=== PATIENT | female | born 1960 | race African-American/Black ===

== ENCOUNTER 2019-04-20 19:45 | Inpatient (IN) | payer SELFPAY ==
[~2019-04-20] VITALS: Ht 162.6 cm; Wt 68.1 kg
[2019-04-20] MEDS ORDERED: SODIUM CHLORIDE 0.9% 1000ML BAG (SEPSIS BOLUS) IV ONE (20:00)
[2019-04-20 20:52] LABS: HEMATOCRIT. 43.1 % (36.0-48.0); HEMOGLOBIN. 13.8 g/dL (12.0-16.0); MEAN CORPUSCULAR HEMOGLOBIN 29.3 pg (28.0-32.0); MEAN CORPUSCULAR VOLUME 91.8 fL (81.0-99.0); MEAN PLATELET VOLUME 11.3 fl (7.4-10.4); PLATELET 207 x1000/uL (130-400); RED BLOOD CELL COUNT 4.69 mill/uL (4.2-5.4); RED CELL DISTRIBUTION WIDTH 17.3 % (11.6-14.6)
[2019-04-20 20:59] LABS: CHLORIDE 134 mEq/L (98-107); INR 1.1
[2019-04-20 21:04] LABS: ETHANOL BLOOD < 10 mg/dL
[2019-04-20] MEDS ORDERED: SODIUM CHLORIDE 0.45% 1,000 ML IV ONE (21:30)
[2019-04-20 21:43] LABS: PLATELET ESTIMATE NORMAL
[2019-04-20] MEDS ORDERED: VANCOMYCIN 1 G PREMIX 200 ML IV SCH (22:15)
[2019-04-20] MEDS ORDERED: PIPERACILLIN/TAZ 3.375G PREMIX 50 ML IV ONE (22:15)
[2019-04-20 22:45] LABS: CLARITY URINE CLOUDY (CLEAR); COLOR URINE YELLOW (YELLOW); KETONES URINE 1+ (NEGATIVE); LEUKOCYTE ESTERASE URINE TRACE (NEGATIVE); NITRITE URINE NEGATIVE (NEGATIVE); OCCULT BLOOD URINE NEGATIVE (NEGATIVE); PROTEIN URINE 1+ (NEGATIVE); SPECIFIC GRAVITY URINE 1.014 (1.005-1.030)
[2019-04-20 23:12] LABS: *BENZODIAZEPINES SCREEN URINE NEGATIVE (NEGATIVE)
[2019-04-20 23:13] LABS: *BARBITURATES SCREEN URINE NEGATIVE (NEGATIVE); *COCAINE SCREEN URINE NEGATIVE (NEGATIVE); CANNABINOID URINE SCREEN NEGATIVE (NEGATIVE); METHADONE URINE SCREEN NEGATIVE (NEGATIVE); OPIATES URINE SCREEN NEGATIVE (NEGATIVE); PHENCYCLIDINE URINE SCREEN NEGATIVE (NEGATIVE)
[2019-04-20 23:14] LABS: *AMPHETAMINES SCREEN URINE NEGATIVE (NEGATIVE)
[2019-04-21] VITALS (55 sets, daily range): BP systolic 83–142; BP diastolic 34–97
[2019-04-21] MEDS ORDERED: ZOSYN XX SCH (06:15)
[2019-04-21] MEDS ORDERED: ACETAMINOPHEN 325MG TABLET PO PRN (06:15)
[2019-04-21] MEDS ORDERED: DEXTROSE 50% WATER 50ML SYRINGE IV PRN (06:15)
[2019-04-21] MEDS ORDERED: GUAIFENESIN-DM 200MG-20MG/10ML UDC PO PRN (06:30)
[2019-04-21 06:32] LABS: BASOPHILS % 0.3 % (0.0-2.0); EOSINOPHILS % 0.1 % (0.0-5.0); HEMATOCRIT. 37.4 % (36.0-48.0); HEMOGLOBIN. 12.1 g/dL (12.0-16.0); LYMPHOCYTES % 12.2 % (20.0-50.0); MEAN CORPUSCULAR HEMOGLOBIN 28.8 pg (28.0-32.0); MEAN PLATELET VOLUME 10.6 fl (7.4-10.4); MONOCYTES % 5.7 % (2.0-8.0); NEUTROPHILS % 81.7 % (40.0-76.0); PLATELET 180 x1000/uL (130-400); RED BLOOD CELL COUNT 4.21 mill/uL (4.2-5.4); RED CELL DISTRIBUTION WIDTH 16.8 % (11.6-14.6)
[2019-04-21] MEDS: DEXTROSE 5% WATER 1,000 ML IV SCH ×2 (06:49→20:50)
[2019-04-21 07:19] LABS: CHLORIDE 129 mEq/L (98-107)
[2019-04-21] MEDS: INSULIN LISPRO 100 UNITS/ML SUBCUT SCH ×4 (08:20→21:00)
[2019-04-21] MEDS: BLOOD SUGAR DIAGNOSTIC STRIP TEST SCH ×4 (08:49→21:15)
[2019-04-21] MEDS ORDERED: HEPARIN 5000 UNITS/ML VIAL SUBCUT SCH (09:00)
[2019-04-21] MEDS: PIPERACILLIN/TAZOBACTAM 3.375 G in DEXT 5% WATER 100 ML IV SCH ×3 (10:17→20:56)
[2019-04-21 11:32] LABS: CREATINE KINASE 66 IU/L (26-192)
[2019-04-21] MEDS ORDERED: POTASSIUM CHLORIDE INJ 40 MEQ in DEXT 5% WATER 250 ML IV SCH (12:00)
[2019-04-21] MEDS: VANCOMYCIN 1 G PREMIX 200 ML IV SCH (17:06)
[2019-04-21] MEDS ORDERED: POTASSIUM CHLORIDE 20MEQ TABLET SR PO NR (18:00)
[2019-04-21] MEDS: HEPARIN 5000 UNITS/ML VIAL SUBCUT SCH (23:00)
[2019-04-22] VITALS (29 sets, daily range): BP systolic 76–145; BP diastolic 35–88
[2019-04-22] MEDS: PIPERACILLIN/TAZOBACTAM 3.375 G in DEXT 5% WATER 100 ML IV SCH ×4 (02:40→23:16)
[2019-04-22] MEDS: INSULIN LISPRO 100 UNITS/ML SUBCUT SCH ×5 (08:20→20:44)
[2019-04-22] MEDS: BLOOD SUGAR DIAGNOSTIC STRIP TEST SCH ×4 (08:46→20:44)
[2019-04-22 08:50] LABS: CHLORIDE 119 mEq/L (98-107)
[2019-04-22 08:56] LABS: PHOSPHORUS 1.7 mg/dL (2.5-4.9)
[2019-04-22] MEDS: HEPARIN 5000 UNITS/ML VIAL SUBCUT SCH ×3 (09:02→20:59)
[2019-04-22] MEDS: DEXTROSE 5% WATER 1,000 ML IV SCH ×3 (09:03→20:59)
[2019-04-22 09:22] LABS: BASOPHILS % 0.4 % (0.0-2.0); HEMATOCRIT. 37.6 % (36.0-48.0); HEMOGLOBIN. 12.4 g/dL (12.0-16.0); LYMPHOCYTES % 24.9 % (20.0-50.0); MEAN CORPUSCULAR HEMOGLOBIN 29.7 pg (28.0-32.0); MEAN CORPUSCULAR VOLUME 90.2 fL (81.0-99.0); MEAN PLATELET VOLUME 11.3 fl (7.4-10.4); MONOCYTES % 5.3 % (2.0-8.0); NEUTROPHILS % 68.4 % (40.0-76.0); PLATELET 110 x1000/uL (130-400); RED BLOOD CELL COUNT 4.17 mill/uL (4.2-5.4); RED CELL DISTRIBUTION WIDTH 16.9 % (11.6-14.6)
[2019-04-22] MEDS: VANCOMYCIN 1 G PREMIX 200 ML IV SCH (10:43)
[2019-04-23] VITALS: BP 109/66
[2019-04-23] MEDS ORDERED: VANCOMYCIN 1 G PREMIX 200 ML IV SCH (03:00)
[2019-04-23 04:00] VITALS: BP 120/84
[2019-04-23] MEDS: PIPERACILLIN/TAZOBACTAM 3.375 G in DEXT 5% WATER 100 ML IV SCH ×4 (04:15→21:23)
[2019-04-23] MEDS: HEPARIN 5000 UNITS/ML VIAL SUBCUT SCH ×3 (05:44→21:23)
[2019-04-23] MEDS: BLOOD SUGAR DIAGNOSTIC STRIP TEST SCH ×4 (06:51→20:50)
[2019-04-23 07:11] LABS: BASOPHILS % 0.2 % (0.0-2.0); EOSINOPHILS % 1.8 % (0.0-5.0); HEMATOCRIT. 35.2 % (36.0-48.0); HEMOGLOBIN. 11.6 g/dL (12.0-16.0); LYMPHOCYTES % 15.4 % (20.0-50.0); MEAN CORPUSCULAR HEMOGLOBIN 29.1 pg (28.0-32.0); MEAN CORPUSCULAR VOLUME 88.3 fL (81.0-99.0); MONOCYTES % 8.7 % (2.0-8.0); NEUTROPHILS % 73.9 % (40.0-76.0); PLATELET 109 x1000/uL (130-400); RED BLOOD CELL COUNT 3.99 mill/uL (4.2-5.4); RED CELL DISTRIBUTION WIDTH 16.1 % (11.6-14.6)
[2019-04-23] MEDS: INSULIN LISPRO 100 UNITS/ML SUBCUT SCH ×4 (07:47→20:50)
[2019-04-23 07:53] LABS: CHLORIDE 114 mEq/L (98-107)
[2019-04-23 08:00] VITALS: BP 104/63
[2019-04-23] MEDS ORDERED: POTASSIUM CHLORIDE 20MEQ TABLET SR PO SCH (09:15)
[2019-04-23 12:00] VITALS: BP 111/65
[2019-04-23 16:00] VITALS: BP 104/61
[2019-04-23] MEDS: VANCOMYCIN 750 MG PREMIX 150 ML IV SCH (18:57)
[2019-04-23 20:00] VITALS: BP 102/64
[2019-04-24] VITALS: BP 90/50
[2019-04-24] MEDS: PIPERACILLIN/TAZOBACTAM 3.375 G in DEXT 5% WATER 100 ML IV SCH (03:44)
[2019-04-24 04:00] VITALS: BP 95/47
[2019-04-24] MEDS: HEPARIN 5000 UNITS/ML VIAL SUBCUT SCH (05:51)
[2019-04-24] MEDS: VANCOMYCIN 750 MG PREMIX 150 ML IV SCH (05:51)
[2019-04-24] MEDS: BLOOD SUGAR DIAGNOSTIC STRIP TEST SCH ×4 (06:35→20:32)
[2019-04-24 07:21] LABS: CHLORIDE 116 mEq/L (98-107)
[2019-04-24 07:45] LABS: BASOPHILS % 0.5 % (0.0-2.0); EOSINOPHILS % 3.1 % (0.0-5.0); HEMATOCRIT. 29.5 % (36.0-48.0); LYMPHOCYTES % 21.4 % (20.0-50.0); MEAN CORPUSCULAR HEMOGLOBIN 29.8 pg (28.0-32.0); MEAN CORPUSCULAR VOLUME 88.1 fL (81.0-99.0); MEAN PLATELET VOLUME 11.4 fl (7.4-10.4); MONOCYTES % 10.3 % (2.0-8.0); NEUTROPHILS % 64.7 % (40.0-76.0); PLATELET 100 x1000/uL (130-400); RED BLOOD CELL COUNT 3.35 mill/uL (4.2-5.4); RED CELL DISTRIBUTION WIDTH 16.4 % (11.6-14.6)
[2019-04-24 08:00] VITALS: BP 97/57
[2019-04-24 12:02] VITALS: BP 98/58
[2019-04-24 16:00] VITALS: BP 103/58
[2019-04-24 20:00] VITALS: BP 95/47
[2019-04-25] VITALS: BP 104/60
[2019-04-25 04:00] VITALS: BP 102/55
[2019-04-25] MEDS: BLOOD SUGAR DIAGNOSTIC STRIP TEST SCH ×4 (06:43→20:37)
[2019-04-25 08:12] VITALS: BP 108/56
[2019-04-25 11:50] VITALS: BP 96/53
[2019-04-25 15:44] VITALS: BP 96/52
[2019-04-25 20:00] VITALS: BP 98/55
[2019-04-26] VITALS: BP 110/59
[2019-04-26 04:00] VITALS: BP 99/52
[2019-04-26] MEDS: BLOOD SUGAR DIAGNOSTIC STRIP TEST SCH (06:44)
[2019-04-26 08:37] VITALS: BP 96/49
[2019-04-26 11:48] VITALS: BP 112/56
[2019-04-26 12:16] VITALS: BP 112/56
== END 2019-04-26 13:15 | disposition home or self-care (01) | DRG 720 ==
LOC: ER 19:45 → EDBEDREQTM 22:38 → EDBEDREQSVC 22:38 → EDBEDREQ 22:38 → CVICU 22:56 → EDBEDREQ 22:59 → ENRESERV 23:10 → CVICU 04-21 00:34 → 6WST 04-22 15:12
PROVIDERS: ADMIT Internal Medicine; ATTEND Internal Medicine
DX: A41.9 Sepsis, unspecified organism (principal); N17.9 Acute kidney failure, unspecified; E87.2 Acidosis; D69.6 Thrombocytopenia, unspecified; E87.0 Hyperosmolality and hypernatremia; D75.82 Heparin induced thrombocytopenia (HIT); E87.8 Other disorders of electrolyte and fluid balance, not elsewhere classified; E87.6 Hypokalemia; N39.0 Urinary tract infection, site not specified; R73.9 Hyperglycemia, unspecified; E88.09 Other disorders of plasma-protein metabolism, not elsewhere classified; T45.515A Adverse effect of anticoagulants, initial encounter; Z60.2 Problems related to living alone; E86.0 Dehydration; Y92.89 Other specified places as the place of occurrence of the external cause
CPT/HCPCS: 36415; 71045; 80048; 80053; 80202; 80305; 80320; 81003; 82550; 82962; 83605; 83735; 83880; 84100; 84145; 84295; 84443; 84484; 85025; 87070; 87804; 93005; 93970; 97162; 99291; J1644; J1815; J2543; J3370; J3480; J7030; J7060; J7070; G0480